=== PATIENT | male | born 1960 | race Caucasian/White ===

== ENCOUNTER 2020-12-14 04:54 | Inpatient (IN) | payer MEDICAID ==
[~2020-12-14] VITALS: Ht 170.2 cm; Wt 87.3 kg
[2020-12-14] MEDS ORDERED: SODIUM CHLORIDE 0.9% 1,000ML IVBOLUS ONE ×2 (05:00→06:30)
--- NOTE | 2020-12-14 05:04 | NUR ---
pt bib remsa for abdominal discomfort RUQ/LUQ and n/v since saturday. denies diarrhea. pt resting on gurney, changed into gown, bed in lowest. rails engaged, call light on lap, nad, reports last vomit was approx 5 mins prior to ems. pt provided warm blankets for comfort. Owen DONOVAN at bs for eval and poc. labs drawn. pt denies additional needs at this time. informed of poc. wctm placed on spo2/bp/ecg monitoring at this time 4mg zofran en route
[2020-12-14 05:09] LABS: MEAN CORPUSCULAR HEMOGLOBIN 34.9 pg (27.5-34.5); MEAN CORPUSCULAR HGB CONC 35.1 g/dL (33.2-36.2); MEAN PLATELET VOLUME 8.6 fL (7.4-10.4); PLATELET COUNT 306 x10^3/uL (130-400); RED BLOOD COUNT 5.73 x10^6/uL (4.38-5.82); RED CELL DISTRIBUTION WIDTH 14.1 % (9.4-14.8)
[2020-12-14 05:18] LABS: ALANINE AMINOTRANSFERASE 29 U/L (12-78); ALBUMIN 4.6 g/dL (3.4-5.0); ANION GAP 16 mmol/L (5-15); CALCIUM 10.2 mg/dL (8.5-10.1); CHLORIDE 85 mmol/L (98-107); CREATININE 3.82 mg/dL (0.7-1.3)
[2020-12-14 05:20] LABS: ALKALINE PHOSPHATASE 113 U/L (45-117); BILIRUBIN,TOTAL 0.9 mg/dL (0.2-1.0); TOTAL PROTEIN 9.7 g/dL (6.4-8.2)
--- NOTE | 2020-12-14 06:16 | NUR ---
PT RESTING ON ISMAEL, ANTWAN, STATES HE IS UNABLE TO PROVIDE URINE SAMPLE AT THIS TIME. US AT BS. MEDICATED PER JAN, WC. WAITING FOR US/LAB RESULTS.
[2020-12-14 06:22] LABS: MD YES
[2020-12-14 06:24] LABS: BAND#(MANUAL) 0.73 x10^3/uL; BANDS%(MANUAL) 8 % (0-7); EOS#(MANUAL) 0.09 x10^3/uL (0.0-0.4); EOS% (MANUAL) 1 % (1-7); LYMPH#(MANUAL) 1.73 x10^3/uL (1-3.4); LYMPHS% (MANUAL) 19 % (22-44); MONOS#(MANUAL) 0.73 x10^3/uL (0.3-2.7); MONOS% (MANUAL) 8 % (2-9); SEG#(MANUAL) 5.82 x10^3/uL (1.8-6.8); SEGS% (MANUAL) 64 % (42-75)
[2020-12-14 06:25] LABS: <PLATELET ESTIMATE> ADEQUATE; <PLT MORPHOLOGY> NORMAL PLT MORPH; ANISOCYTOSIS 1+
--- NOTE | 2020-12-14 06:39 | NUR ---
PT RESTING ON ISMAEL, NAD, NO CHANGE IN CONDITION AT THIS TIME. BED IN LOWEST, RAILS ENGAGED, CALL LIGHT ON LAP, DENIES ADDITIONAL NEEDS AT THIS TIME. WAITING FOR US READ, ESCOBAR.
--- NOTE | 2020-12-14 06:51 | NUR ---
REPORT TO BRENTON ALICEA, PT CARE TRANSFERRED AT THIS TIME.
[2020-12-14] MEDS ORDERED: ONDANSETRON 2MG/ML, 2ML IVPush ONE (07:30)
[2020-12-14] MEDS ORDERED: ONDANSETRON 2MG/ML, 2ML ONE (07:31)
[2020-12-14 08:23] LABS: MICROSCOPIC INDICATED
--- NOTE | 2020-12-14 08:26 | NUR ---
MEDICATED FOR NAUSEA
[2020-12-14] MEDS ORDERED: METOCLOPRAMIDE 5 MG/ML, 2ML ONE (08:34)
--- NOTE | 2020-12-14 08:42 | NUR ---
PT STILL N/V, AWARE. REGLAN ADMIN. LIGHTS DIMMED PT RESTING. POC FOR ADMIT
[2020-12-14] MEDS: LACTATED RINGERS 1,000 ML IV SCH ×3 (09:00→23:13)
[2020-12-14] MEDS ORDERED: METOCLOPRAMIDE 5 MG/ML, 2ML IVPush ONE (09:00)
[2020-12-14] MEDS ORDERED: HYDROcodone/APAP 5/325 TABLET PO PRN (09:30)
[2020-12-14] MEDS ORDERED: MELATONIN 5 MG TABLET PO PRN (09:30)
[2020-12-14] MEDS ORDERED: LABETALOL 5MG/ML, 20ML IVPush PRN (09:30)
[2020-12-14] MEDS ORDERED: LORazepam 2 MG/ML, 1ML IVPush PRN (09:30)
[2020-12-14] MEDS ORDERED: DIPHENHYDRAMINE 25 MG CAPSULE PO PRN (09:30)
[2020-12-14] MEDS ORDERED: hydrALAzine 20 MG/ML, 1ML IVPush PRN (09:30)
[2020-12-14] MEDS ORDERED: PROMETHAZINE 25 MG/ML, 1ML IM PRN (09:30)
[2020-12-14] MEDS ORDERED: POLYETHYLENE GLYCOL 17 GM PACKET PO PRN (09:30)
[2020-12-14] MEDS: SENNA/DOCUSATE TABLET PO SCH (09:30)
[2020-12-14] MEDS: PANTOPRAZOLE 40 MG IV IVPush SCH ×2 (09:30→21:54)
[2020-12-14] MEDS ORDERED: BISACODYL 10 MG SUPP PR PRN (09:30)
[2020-12-14] MEDS ORDERED: METOCLOPRAMIDE 5 MG/ML, 2ML IVPush PRN (09:30)
[2020-12-14] MEDS ORDERED: LIDODERM 5% PATCH TD PRN (09:30)
[2020-12-14] MEDS ORDERED: PANTOPRAZOLE 40 MG IV ONE (09:44)
--- NOTE | 2020-12-14 10:36 | NUR ---
REPORT TO RENO
[2020-12-14 11:23] VITALS: BP 109/68
[2020-12-14 11:24] LABS: ANION GAP 11 mmol/L (5-15); CALCIUM 8.8 mg/dL (8.5-10.1); CHLORIDE 93 mmol/L (98-107); CREATININE 2.95 mg/dL (0.7-1.3)
[2020-12-14 12:20] LABS: AMPHETAMINE SCREEN, URINE Positive (Negative); BARBITURATE SCREEN, URINE Negative (Negative); BENZODIAZEPINE SCREEN, URINE Negative (Negative); CANNABINOID SCREEN, URINE Negative (Negative); COCAINE SCREEN, URINE Negative (Negative); METHADONE SCREEN, URINE Negative (Negative); OPIATE SCREEN, URINE Negative (Negative)
[2020-12-14] MEDS: ONDANSETRON 2MG/ML, 2ML IVPush PRN (12:43)
[2020-12-14 15:46] VITALS: BP 111/71
[2020-12-14 22:30] VITALS: BP 121/75
[2020-12-15 01:55] VITALS: BP 150/87
[2020-12-15] MEDS: ONDANSETRON 2MG/ML, 2ML IVPush PRN (02:02)
[2020-12-15] MEDS: LACTATED RINGERS 1,000 ML IV SCH ×3 (05:36→23:26)
[2020-12-15 06:20] LABS: MEAN CORPUSCULAR HEMOGLOBIN 34.6 pg (27.5-34.5); MEAN PLATELET VOLUME 8.1 fL (7.4-10.4); PLATELET COUNT 245 x10^3/uL (130-400); RED BLOOD COUNT 4.49 x10^6/uL (4.38-5.82); RED CELL DISTRIBUTION WIDTH 13.9 % (9.4-14.8)
[2020-12-15 06:32] LABS: LDL/HDL RATIO 1.4 (0.5-3.0)
[2020-12-15 06:41] LABS: MD YES
[2020-12-15 06:43] LABS: BAND#(MANUAL) 0.43 x10^3/uL; BANDS%(MANUAL) 7 % (0-7); EOS#(MANUAL) 0.12 x10^3/uL (0.0-0.4); EOS% (MANUAL) 2 % (1-7); LYMPH#(MANUAL) 0.92 x10^3/uL (1-3.4); LYMPHS% (MANUAL) 15 % (22-44); MONOS#(MANUAL) 0.98 x10^3/uL (0.3-2.7); MONOS% (MANUAL) 16 % (2-9); SEG#(MANUAL) 3.66 x10^3/uL (1.8-6.8); SEGS% (MANUAL) 60 % (42-75)
[2020-12-15 06:45] LABS: <PLATELET ESTIMATE> ADEQUATE; <PLT MORPHOLOGY> NORMAL PLT MORPH
[2020-12-15 07:24] VITALS: BP 147/91
[2020-12-15] MEDS: PANTOPRAZOLE 40 MG IV IVPush SCH ×2 (09:46→20:55)
[2020-12-15] MEDS: SENNA/DOCUSATE TABLET PO SCH (09:46)
[2020-12-15 11:54] LABS: ANION GAP 8 mmol/L (5-15); CALCIUM 8.5 mg/dL (8.5-10.1); CHLORIDE 101 mmol/L (98-107); CREATININE 1.45 mg/dL (0.7-1.3)
[2020-12-15 13:16] VITALS: BP 143/86
[2020-12-15 18:28] VITALS: BP 155/75
[2020-12-16 00:06] VITALS: BP 137/86
[2020-12-16 05:16] LABS: BASOPHILS % (AUTO) 0 % (0-1); EOSINOPHILS % (AUTO) 1 % (1-7); LYMPHOCYTES % (AUTO) 22 % (22-44); MEAN CORPUSCULAR HEMOGLOBIN 34.5 pg (27.5-34.5); MEAN CORPUSCULAR HGB CONC 35.3 g/dL (33.2-36.2); MEAN PLATELET VOLUME 8.3 fL (7.4-10.4); MONOCYTES % (AUTO) 23 % (2-9); NEUTROPHILS % (AUTO) 54 % (42-75); PLATELET COUNT 216 x10^3/uL (130-400); RED BLOOD COUNT 4.02 x10^6/uL (4.38-5.82); RED CELL DISTRIBUTION WIDTH 13.5 % (9.4-14.8)
[2020-12-16 05:17] LABS: MD NO
[2020-12-16 05:29] LABS: ALBUMIN 2.9 g/dL (3.4-5.0); ANION GAP 8 mmol/L (5-15); CALCIUM 8.3 mg/dL (8.5-10.1); CHLORIDE 103 mmol/L (98-107)
[2020-12-16 05:33] LABS: ALANINE AMINOTRANSFERASE 19 U/L (12-78); ALKALINE PHOSPHATASE 57 U/L (45-117); BILIRUBIN,TOTAL 1.1 mg/dL (0.2-1.0); CREATININE 0.92 mg/dL (0.7-1.3); TOTAL PROTEIN 5.6 g/dL (6.4-8.2)
[2020-12-16] MEDS: LACTATED RINGERS 1,000 ML IV SCH ×3 (06:10→20:02)
[2020-12-16 06:26] VITALS: BP 165/88
[2020-12-16] MEDS: SENNA/DOCUSATE TABLET PO SCH (09:00)
[2020-12-16] MEDS: PANTOPRAZOLE 40 MG IV IVPush SCH ×2 (09:03→20:01)
[2020-12-16] MEDS: HYDROmorphone 2 MG/ML, 1ML IVPush PRN ×4 (09:06→16:25)
[2020-12-16 13:41] VITALS: BP 145/87
[2020-12-16 19:37] VITALS: BP 130/93
[2020-12-17] MEDS: HYDROmorphone 2 MG/ML, 1ML IVPush PRN ×2 (01:16→06:32)
[2020-12-17 01:19] VITALS: BP 158/89
[2020-12-17] MEDS: LACTATED RINGERS 1,000 ML IV SCH ×2 (03:01→10:44)
[2020-12-17 05:58] LABS: ANION GAP 5 mmol/L (5-15); CALCIUM 8.4 mg/dL (8.5-10.1); CHLORIDE 103 mmol/L (98-107); CREATININE 0.98 mg/dL (0.7-1.3)
[2020-12-17 06:39] VITALS: BP 169/89
[2020-12-17] MEDS: PANTOPRAZOLE 40 MG IV IVPush SCH (08:33)
[2020-12-17] MEDS: SENNA/DOCUSATE TABLET PO SCH (09:00)
[2020-12-17 13:12] VITALS: BP 146/78
== END 2020-12-17 16:27 | disposition home or self-care (01) | DRG 438 ==
LOC: ED 07:14 → EDIP 08:36 → 3N 10:48 → DCLOUNGE 12-17 16:15
PROVIDERS: ADMIT Internal Medicine; ATTEND Internal Medicine
DX: K85.00 Idiopathic acute pancreatitis without necrosis or infection (principal); N17.0 Acute kidney failure with tubular necrosis; E87.1 Hypo-osmolality and hyponatremia; D75.89 Other specified diseases of blood and blood-forming organs; E83.52 Hypercalcemia; E86.0 Dehydration; F15.90 Other stimulant use, unspecified, uncomplicated; F17.290 Nicotine dependence, other tobacco product, uncomplicated; K82.8 Other specified diseases of gallbladder; E74.39 Other disorders of intestinal carbohydrate absorption
CPT/HCPCS: 36415; 76700; 78227; 80048; 80053; 80061; 80307; 80320; 81001; 83690; 83735; 84100; 85025; 87077; 87086; 87186; 96361; 96374; 96375; 99285; G0378; J1170; J2405; A9537; C9113; G0480; J2765; J2805; J7030; J7120